=== PATIENT | male | born 1950 | race Caucasian/White ===

== ENCOUNTER 2024-12-17 18:41 | Inpatient (IN) | payer MEDICARE ==
[~2024-12-17] VITALS: Ht 180.3 cm; Wt 84.8 kg
[~2024-12-17 18:41] MED LIST: AMA100C PO; APIX5TAB3 PO; ATOR20TA PO; CARB-17 PO; FLEC50TA28 PO; LISI20TA28 PO; LOP12.5T PO; PRAM0.129 PO; PRIM50TA5 PO
[2024-12-17 19:02] LABS: BASOPHILS # (AUTO) 0.1 X10'3 (0-0.2); BASOPHILS % (AUTO) 0.9 % (0-1); EOSINOPHILS # (AUTO) 0.2 X10'3 (0-0.9); EOSINOPHILS % (AUTO) 4.4 % (0-6); HEMATOCRIT 39.8 % (42.0-52.0); HEMOGLOBIN 13.3 g/dl (14.0-17.9); LYMPHOCYTES % (AUTO) 16.6 % (21-51); MEAN CORPUSCULAR HGB CONC 33.5 g/dL (33.0-36.5); MEAN CORPUSCULAR VOLUME 95.5 FL (78-98); MEAN PLATELET VOLUME 7.5 FL (7.4-10.4); MONOCYTES # (AUTO) 0.6 X10'3 (0-0.9); MONOCYTES % (AUTO) 10.9 % (2-12); NEUTROPHILS # (AUTO) 3.8 X10'3 (1.8-7.7); NEUTROPHILS % (AUTO) 67.2 % (42-75); PLATELET COUNT 218 X10'3 (140-440); RED BLOOD COUNT 4.17 X10'6 (4.70-6.10); RED CELL DISTRIBUTION WIDTH 15.2 % (11.5-14.5); WHITE BLOOD COUNT 5.7 X10'3 (4.5-11.0)
[2024-12-17 19:15] LABS: ALANINE AMINOTRANSFERASE 12 U/L (12-78); ALBUMIN 3.9 G/DL (3.4-5.0); ALBUMIN/GLOBULIN RATIO 1.1 (1.1-1.5); ALKALINE PHOSPHATASE 109 IU/L (46-116); ANION GAP 7 (8-16); ASPARTATE AMINO TRANSFERASE 19 U/L (10-37); BILIRUBIN,TOTAL 0.4 MG/DL (0.1-1.0); BLOOD UREA NITROGEN 39 MG/DL (7-18); BUN/CREATININE RATIO 27.9 (10.0-20.0); CHLORIDE 100 MMOL/L (99-107); GLUCOSE 95 MG/DL (70-104); POTASSIUM 4.2 MMOL/L (3.5-5.1); SODIUM 137 MMOL/L (135-145); TOTAL CARBON DIOXIDE 29.7 MMOL/L (24-32); TOTAL PROTEIN 7.6 G/DL (6.4-8.2); eCRCL 50 ML/MIN; eGFR 50 ML/MIN
[2024-12-17] MEDS: magnesium sulf-water 2g/50mL 50 ML IV ONE (19:17)
[2024-12-17 19:25] LABS: PRO BRAIN NATRIURETIC PEPTIDE 162 PG/ML (0-125)
[2024-12-17] MEDS: morphine 2 MG/ML inj. syringe IV ONE (23:11)
[2024-12-17] MEDS: midazolam 1 mg/ML 2ml injection IV ONE (23:11)
[2024-12-17] MEDS: etomidate 2mg/ml inj. IV ONE (23:12)
[2024-12-17] MEDS: normal saline 1000ML IV soln IVB ONE (23:12)
[2024-12-17] MEDS ORDERED: magnesium Cl slow-release 64mg tablet PO PRN (23:45)
[2024-12-17] MEDS ORDERED: magnesium hydroxide 30ml (MOM) UD suspension PO PRN (23:45)
[2024-12-17] MEDS ORDERED: ondansetron/PF 4mg/2ml inj IV PRN (23:45)
[2024-12-17] MEDS ORDERED: potassium Cl 40MEQ/1/2NS 520ml 520 ML IV PRN (23:45)
[2024-12-17] MEDS ORDERED: mag hydrox/Alum hydrox/simeth 30ml oral suspension PO PRN (23:45)
[2024-12-17] MEDS ORDERED: HYDROcodone/acetaminophen 5mg/325mg tablet PO PRN (23:45)
[2024-12-17] MEDS ORDERED: magnesium sulf-water 4G/100mL 100 ML IV PRN (23:45)
[2024-12-17] MEDS ORDERED: potassium Cl 20 mEq SR tablet PO PRN ×2 (23:45)
[2024-12-17] MEDS ORDERED: magnesium sulf-water 2g/50mL 50 ML IV PRN (23:45)
[2024-12-17] MEDS ORDERED: morphine 2 MG/ML inj. syringe IV PRN (23:45)
[2024-12-18] VITALS (8 sets, daily range): BP systolic 91–134; BP diastolic 44–70; PULSE 45–56; RESP 14–20; TEMP 97–98.2; O2SAT 95–99
[2024-12-18 02:26] LABS: BASOPHILS % (AUTO) 0.7 % (0-1); EOSINOPHILS # (AUTO) 0.3 X10'3 (0-0.9); EOSINOPHILS % (AUTO) 5.4 % (0-6); HEMATOCRIT 40.5 % (42.0-52.0); LYMPHOCYTES # (AUTO) 1.4 X10'3 (1.1-4.8); LYMPHOCYTES % (AUTO) 23.9 % (21-51); MEAN CORPUSCULAR HEMOGLOBIN 33.1 PG (27.0-31.0); MEAN CORPUSCULAR HGB CONC 34.7 g/dL (33.0-36.5); MEAN CORPUSCULAR VOLUME 95.5 FL (78-98); MEAN PLATELET VOLUME 7.3 FL (7.4-10.4); MONOCYTES # (AUTO) 0.6 X10'3 (0-0.9); MONOCYTES % (AUTO) 10.5 % (2-12); NEUTROPHILS # (AUTO) 3.5 X10'3 (1.8-7.7); NEUTROPHILS % (AUTO) 59.5 % (42-75); PLATELET COUNT 208 X10'3 (140-440); RED BLOOD COUNT 4.24 X10'6 (4.70-6.10); RED CELL DISTRIBUTION WIDTH 15.2 % (11.5-14.5); WHITE BLOOD COUNT 5.9 X10'3 (4.5-11.0)
[2024-12-18 02:36] LABS: ANION GAP 7 (8-16); BLOOD UREA NITROGEN 35 MG/DL (7-18); BUN/CREATININE RATIO 27.3 (10.0-20.0); CHLORIDE 102 MMOL/L (99-107); CREATININE 1.28 MG/DL (0.60-1.10); GLUCOSE 98 MG/DL (70-104); POTASSIUM 4.5 MMOL/L (3.5-5.1); SODIUM 138 MMOL/L (135-145); TOTAL CARBON DIOXIDE 29.3 MMOL/L (24-32)
[2024-12-18 02:37] LABS: ALBUMIN 3.8 G/DL (3.4-5.0); CALCIUM 8.8 MG/DL (8.5-10.1); MAGNESIUM 2.4 MG/DL (1.5-2.4); eCRCL 55 ML/MIN; eGFR 55 ML/MIN
[2024-12-18] MEDS: K and/or MAG REPLACEMENT MC SCH (08:00)
[2024-12-18] MEDS: apixaban 5mg tablet PO SCH (08:40)
[2024-12-18] MEDS: metoprolol tartrate 12.5mg (1/2 tablet) PO SCH (08:40)
[2024-12-18] MEDS: amantadine 100 MG capsule PO SCH (08:41)
[2024-12-18] MEDS: flecainide 50mg tablet PO SCH (08:41)
[2024-12-18] MEDS: pramipexole 0.25mg tablet PO SCH (08:42)
[2024-12-18] MEDS: docusate sod 100mg capsule PO SCH (08:42)
[2024-12-18] MEDS: lisinopril 20mg tablet PO SCH (08:42)
[2024-12-18] MEDS: primidone 50mg tablet PO SCH (09:14)
[2024-12-18] MEDS: acetaminophen 325mg tablet PO PRN (12:02)
[2024-12-18 12:40] LABS: CHOL/HDL RATIO 2.2 (0.00-4.99); CHOLESTEROL 172 MG/DL (0-200); HDL CHOLESTEROL 77 MG/DL (35-60); LDL CHOLESTEROL 76 MG/DL (50-100); TRIGLYCERIDES 86 MG/DL (20-135)
[2024-12-18] MEDS: normal saline 500ml IV soln 500 ML IV ONE (12:44)
[2024-12-18] MEDS: atorvastatin 20mg tablet PO SCH (21:12)
[2024-12-19 02:00] VITALS: BP 120/70; PULSE 47; RESP 12; TEMP 97.4; O2SAT 98
[2024-12-19 06:00] VITALS: BP 109/52; PULSE 55; RESP 16; TEMP 98.3; O2SAT 97
[2024-12-19 07:21] LABS: ALBUMIN 3.6 G/DL (3.4-5.0); ANION GAP 8 (8-16); BLOOD UREA NITROGEN 40 MG/DL (7-18); BUN/CREATININE RATIO 24.7 (10.0-20.0); CHLORIDE 101 MMOL/L (99-107); CREATININE 1.62 MG/DL (0.60-1.10); GLUCOSE 98 MG/DL (70-104); MAGNESIUM 2.2 MG/DL (1.5-2.4); POTASSIUM 4.3 MMOL/L (3.5-5.1); SODIUM 137 MMOL/L (135-145); TOTAL CARBON DIOXIDE 28.4 MMOL/L (24-32); eCRCL 43 ML/MIN; eGFR 42 ML/MIN
[2024-12-19 07:28] LABS: BASOPHILS % (AUTO) 0.8 % (0-1); EOSINOPHILS # (AUTO) 0.2 X10'3 (0-0.9); EOSINOPHILS % (AUTO) 3.9 % (0-6); HEMATOCRIT 38.2 % (42.0-52.0); HEMOGLOBIN 13.3 g/dl (14.0-17.9); LYMPHOCYTES # (AUTO) 1.4 X10'3 (1.1-4.8); MEAN CORPUSCULAR HEMOGLOBIN 33.3 PG (27.0-31.0); MEAN CORPUSCULAR HGB CONC 34.9 g/dL (33.0-36.5); MEAN CORPUSCULAR VOLUME 95.5 FL (78-98); MEAN PLATELET VOLUME 7.6 FL (7.4-10.4); MONOCYTES # (AUTO) 0.6 X10'3 (0-0.9); NEUTROPHILS % (AUTO) 64.3 % (42-75); PLATELET COUNT 182 X10'3 (140-440); RED CELL DISTRIBUTION WIDTH 15.5 % (11.5-14.5); WHITE BLOOD COUNT 6.2 X10'3 (4.5-11.0)
[2024-12-19 08:00] VITALS: RESP 16; O2SAT 97
[2024-12-19 11:00] VITALS: BP 108/42; PULSE 51; RESP 12; TEMP 97.9; O2SAT 95
[2024-12-19] MEDS ORDERED: LISI10TA27 PO (11:33)
[2024-12-20] MEDS ORDERED: lisinopril 10 MG tablet PO SCH (08:00)
== END 2024-12-19 14:52 | disposition home or self-care (01) | DRG 308 ==
LOC: ER 18:42 → ED HOLD 23:12 → PCU 3S 12-18 04:20
PROVIDERS: ADMIT Internal Medicine Critical Care Medicine; ATTEND Internal Medicine
PROC: 5A2204Z Restoration of Cardiac Rhythm, Single (ICD-10-PCS; principal; 2024-12-17)
DX: I48.0 Paroxysmal atrial fibrillation (principal); N17.0 Acute kidney failure with tubular necrosis; G20.A1 Parkinson's disease without dyskinesia, without mention of fluctuations; E78.5 Hyperlipidemia, unspecified; I12.9 Hypertensive chronic kidney disease with stage 1 through stage 4 chronic kidney disease, or unspecified chronic kidney disease; N18.9 Chronic kidney disease, unspecified; Z79.01 Long term (current) use of anticoagulants; Z79.899 Other long term (current) drug therapy
CPT/HCPCS: 36415; 71045; 80048; 80053; 80061; 83735; 83880; 84484; 85025; 87081; 92960; 93005; 97116; 97161; 97530; 99152; 99285; A4620; A6590; G0378; J2250; J2270; J3490; J7030; J7040